=== PATIENT | female | born 1980 | race African-American/Black ===

== ENCOUNTER 2017-09-15 20:15 | Inpatient (IN) | payer BC ==
[~2017-09-15] VITALS: Ht 162.6 cm; Wt 105.8 kg
[2017-09-15 20:22] VITALS: Ht 162.6 cm; Wt 105.8 kg
[2017-09-15 21:18] LABS: BASOPHIL % 0.2 % (0-2); PLATELET COUNT 237 x10^3mcL (130-400); RED CELL DISTRIBUTION WIDTH 13.5 % (11.5-14.5)
[2017-09-15 21:22] LABS: CALCIUM 9.1 mg/dL (8.5-10.1); CARBON DIOXIDE 27.9 mmol/L (21-32); CHLORIDE SERUM 105 mmol/L (98-107); CREATININE SERUM 0.8 mg/dL (0.6-1.0); GFR1 > 60 mL/min; GLUCOSE SERUM 133 mg/dL (74-106); POTASSIUM SERUM 3.8 mmol/L (3.5-5.1); SODIUM SERUM 139 mmol/L (136-145)
[2017-09-15 21:27] LABS: ALKALINE PHOSPHATASE 63 U/L (46-116); ALT/SGPT 15 U/L (14-59); AMYLASE 55 U/L (25-115); AST/SGOT 7 U/L (15-37); BILIRUBIN TOTAL 0.19 mg/dL (0.20-1.00); LIPASE 93 IU/L (73-393); TOTAL PROTEIN, SERUM 6.8 g/dL (6.4-8.2)
[2017-09-15 21:34] LABS: ALBUMIN 3.3 g/dL (3.4-5.0)
[2017-09-16 00:35] VITALS: BP 100/58
[2017-09-16 03:11] LABS: MAGNESIUM 1.8 mg/dL (1.8-2.4); PHOSPHOROUS 4.2 mg/dL (2.5-4.9)
[2017-09-16 03:23] LABS: CHOLESTEROL/HDL RATIO 2.6
[2017-09-16 03:25] LABS: T3 TOTAL 1.41 ng/mL
[2017-09-16 03:30] LABS: FREE T4 1.02 ng/dL (0.76-1.46); FREE THYROXINE INDEX 2.5 ug/dL (1.4-4.5)
[2017-09-16 05:39] VITALS: BP 103/68
[2017-09-16 08:00] VITALS: BP 103/58
[2017-09-16 12:01] LABS: microscopic required? NO
[2017-09-16 12:04] LABS: UA SPECIFIC GRAVITY 1.025 (1.005-1.035); urine erythrocyte NEGATIVE (NEGATIVE)
[2017-09-16 12:12] LABS: AMPHETAMINE QUAL UR NONE DETECTED (NEG <=1000)
[2017-09-16 17:30] VITALS: BP 103/58
== END 2017-09-16 17:58 | disposition home or self-care (01) | DRG 777 ==
LOC: ED 20:15 → DU 23:50
PROVIDERS: Emergency Medicine; Family Medicine
DX: O00.90 Unspecified ectopic pregnancy without intrauterine pregnancy (principal); E44.1 Mild protein-calorie malnutrition; Z68.41 Body mass index [BMI] 40.0-44.9, adult; E66.01 Morbid (severe) obesity due to excess calories
CPT/HCPCS: 83880; 84439; J2270; J2405; J2543; J7030; J9260